=== PATIENT | female | born 1965 | race African-American/Black ===

== ENCOUNTER 2021-08-01 09:00 | Outpatient (CLI) | payer BC, SELFPAY ==
--- NOTE | ~2021-08-01 | PE_ITS ---
EXAMINATION: PET skull to mid thigh DATE: 08/01/2021 11:17 INDICATION: Solitary pulmonary nodule. TECHNIQUE: Blood glucose level was 117 mg/dL. 9.218 mCi of 18-fluorodeoxyglucose (18-FDG) was adminis tered i.v. Low dose computed tomography (CT) images were acquired from the base of the brain to the p roximal thighs for attenuation correction and anatomic localization. Positron emission tomography (PE T) images were acquired in the same distribution beginning 64 minutes after injection. Images includi ng fused PET/CT images were reconstructed in axial, coronal, and sagittal planes. Automated exposure control technique was employed. The dose-length product was 1315.36mGy-cm. COMPARISON: None FINDINGS: Head/neck: There is symmetric increased activity in the oral cavity, palatine tonsils and ocular muscles without CT correlate, likely physiologic. No pathologically enlarged cervical lymphadenopathy or suspicious foci of increased FDG uptake in the visualized head or neck. Chest: No evident FDG activity associated with a 9 mm nodule in the posterior basilar segment of the left lo wer lobe. No other pulmonary nodules, pneumonia, pulmonary edema or pleural effusion. Heart size is n ormal. No pericardial effusion. Thoracic aorta is normal in caliber. No pathologically enlarged or FD G avid thoracic lymphadenopathy. Mild thoracic dextroscoliosis with moderate spondylosis. Abdomen/pelvis/proximal thighs: There are a few small hypodense likely hepatic cysts without evident abnormal FDG uptake, the largest in the right hepatic lobe measuring up to 1.5 cm. Cholecystectomy clips the gallbladder fossa. Splee n, pancreas and bilateral adrenal glands are normal. Physiologic renal accumulation and excretion of FDG activity in the kidneys, bladder and along portions of ureters. Mild uptake scattered throughout the bowels without radiologic correlate, also likely physiologic. Normal appendix. No other abnormal foci of increased FDG uptake or pathologically enlarged lymphadenopathy in the abdomen, pelvis or pro ximal thighs. Mild lumbar spondylosis with Modic type III sclerotic endplate changes at the inferior endplate of L5. Osteitis pubis. No suspicious lytic or blastic bone lesions. IMPRESSION: 1. No abnormal FDG uptake is fissure with a 9 mm left lower lobe nodule. While reassuring would recom mend six-month follow-up low-dose noncontrast chest CT and comparison with any outside cross-sectiona l imaging. Reviewed, dictated and finalized at location A. IMPRESSION: 1. No abnormal FDG uptake is fissure with a 9 mm left lower lobe nodule. While reassuring would recommend six-month follow-up low-dose noncontrast chest CT an d comparison with any outside cross-sectional imaging.
[2021-08-01 09:40] LABS: Glucose Point of Care 117 mg/dl (65-105)
== END 2021-08-01 09:01 | disposition home or self-care (01) ==
LOC: ANHIMG 09:07
PROVIDERS: Visit Provider Internal Medicine Pulmonary Disease
DX: R91.1 Solitary pulmonary nodule (principal)
CPT/HCPCS: 78815; A9552